=== PATIENT | female | born 1960 | race Native Hawaiian/Other Pacific Islander ===

== ENCOUNTER 2022-04-20 11:28 | Outpatient (CLI) | payer BC ==
[~2022-04-20 11:28] MED LIST: ASPIRIN LOW81 MG PO
[2022-04-20 11:44] LABS: PLATELET COUNT 211 K/uL (152-353)
[2022-04-20 12:20] LABS: POTASSIUM 3.7 mmol/L (3.6-5.2)
== END 2022-04-20 23:10 | disposition home or self-care (01) ==
LOC: LABW 11:28
PROVIDERS: ATTEND Family Medicine
DX: R10.9 Unspecified abdominal pain (principal); R31.9 Hematuria, unspecified
CPT/HCPCS: 36415; 80053; 85027

== ENCOUNTER 2022-04-23 05:58 | Emergency (ER) | payer BC ==
[~2022-04-23] VITALS: Ht 152.4 cm; Wt 79.8 kg
[2022-04-23 06:00] VITALS: TEMP 98.8
[2022-04-23 06:50] LABS: POTASSIUM 3.1 mmol/L (3.6-5.2)
[2022-04-23 06:53] LABS: PLATELET COUNT 218 K/uL (152-353)
[2022-04-23 10:09] VITALS: BP 140/80
== END 2022-04-23 10:28 | disposition home or self-care (01) ==
LOC: ED 05:58
PROVIDERS: Family Medicine
DX: R10.84 Generalized abdominal pain (principal); R11.2 Nausea with vomiting, unspecified
CPT/HCPCS: 36415; 80053; 81000; 82150; 82550; 83690; 84484; 85027; 87086; 87088; 93005; 94664; 96374; 96375; 96376; 99284; J1885; J2405; J3490

== ENCOUNTER 2022-04-25 16:45 | Outpatient (CLI) | payer BC ==
[~2022-04-25] VITALS: Ht 152.4 cm; Wt 76.2 kg
== END 2022-04-25 22:00 | disposition home or self-care (01) ==
LOC: INF 16:45
PROVIDERS: ATTEND Family Medicine
DX: E86.0 Dehydration (principal)
CPT/HCPCS: 96360; 96361